=== PATIENT | male | born 1975 | race Caucasian/White ===

== ENCOUNTER 2018-02-26 04:52 | Observation (INO) | payer BC ==
[2018-02-26] MEDS ORDERED: ASPIRIN 81 MG PO STA (04:57)
[2018-02-26] MEDS ORDERED: NITROGLYCERIN SL TABS 0.4 MG TAB SUBLINGUAL STA (04:57)
--- NOTE | 2018-02-26 05:02 | ED ---
Chest Pain HPI - General Chief Complaint: Chest Pain Stated Complaint: Chest pain Time Seen by Provider: 02/26/18 04:54 Source: patient, RN notes reviewed Mode of arrival: wheelchair Limitations: no limitations - History of Present Illness Initial Comments: This is a 42-year-old male with a benign past medical history other than smoking 1 pack cigarettes per day who states he had the onset about 10 PM last night of some left arm discomfort he states he later developed left chest tightness 3/10 severity also some slight left facial numbness later on no fevers chills nausea vomiting sweats or other symptoms he was concerned so he came in for evaluation. No known prior history of heart or lung disease for himself or family members at this time. No other modifying factors at this time. Pain does not get worse or better with movements or positional changes no fevers chills nausea vomiting sweats cough or phlegm production. MD Complaint: chest pain - Related Data Allergies Allergy/AdvReac Type Severity Reaction Status Date / Time No Known Allergies Allergy Verified 02/26/18 04:57 Review of Systems ROS Statement: Those systems with pertinent positive or pertinent negative responses have been documented in the HPI. ROS Other: All systems not noted in ROS Statement are negative. EKG Findings - EKG Results: EKG: interpreted by ANTONETTE, sinus rhythm (Sinus rhythm rate of 86. 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 nonspecific inferior changes) Past Medical History Past Medical History: No Reported History History of Any Multi-Drug Resistant Organisms: None Reported Past Surgical History: No Surgical Hx Reported Past Psychological History: No Psychological Hx Reported Smoking Status: Current every day smoker Past Alcohol Use History: None Reported Past Drug Use History: None Reported General Exam - General Exam Comments Initial Comments: This is a well-developed well-nourished awake alert oriented 3 male Limitations: no limitations General appearance: alert, in no apparent distress Head exam: Present: atraumatic, normocephalic, normal inspection Eye exam: Present: normal appearance, PERRL, EOMI. Absent: scleral icterus, conjunctival injection, periorbital swelling ENT exam: Present: normal exam, mucous membranes moist Neck exam: Present: normal inspection. Absent: tenderness, meningismus, lymphadenopathy Respiratory exam: Present: normal lung sounds bilaterally. Absent: respiratory distress, wheezes, rales, rhonchi, stridor Cardiovascular Exam: Present: regular rate, normal rhythm, normal heart sounds. Absent: systolic murmur, diastolic murmur, rubs, gallop, clicks GI/Abdominal exam: Present: soft, normal bowel sounds. Absent: distended, tenderness, guarding, rebound, rigid Extremities exam: Present: normal inspection, full ROM, normal capillary refill. Absent: tenderness, pedal edema, joint swelling, calf tenderness Back exam: Present: normal inspection Neurological exam: Present: alert, oriented X3, CN II-XII intact Psychiatric exam: Present: normal affect, normal mood Skin exam: Present: warm, dry, intact, normal color. Absent: rash Course Vital Signs 02/26/18 02/26/18 02/26/18 04:54 05:09 05:56 Pulse Rate 94 78 75 Respiratory 16 18 18 Rate Blood Pressure 162/99 152/81 126/82 O2 Sat by Pulse 96 98 98 Oximetry - Reevaluation(s) Reevaluation #1: 02/26/18 06:20 Patient's pain is resolved after the aspirin and nitro was given. Chest Pain MDM - MDM I did review the imaging and report no acute findings. Patient does have resolution of his pain after aspirin and nitroglycerin. He does have EKG changes. The patient will be admitted to the hospitalist service he does see Dr. Coppola normally. The case was discussed with Mara Manager [employer] who is covering for Dr. Baldwin Critical Care Time Critical Care Time: Yes Critical Care Time: 31 minutes of critical care time which includes initial presentation with history physical labs x-rays reevaluation the patient several occasions discuss with the patient regarding findings discussed with the main service admission orders and documentation of the above Disposition Clinical Impression: Unstable angina pectoris, Chest pain Disposition: ADMITTED IP TO THIS [facility] Condition: Stable Referrals: None,Stated [Primary Care Provider] - 1-2 days
[2018-02-26 05:12] LABS: Basophils # (A) 0.1 k/uL (0-0.2); Basophils % (A) 1 %; Eosinophils # (A) 0.3 k/uL (0-0.7); Eosinophils % (A) 2 %; HGB 17.2 gm/dL (13.0-17.5); Lymphocytes # (A) 2.4 k/uL (1.0-4.8); Lymphocytes % (A) 19 %; MCH 29.1 pg (25.0-35.0); MCHC 33.8 g/dL (31.0-37.0); MCV 86.3 fL (80.0-100.0); Mean Platelet Volume 8.4; Monocytes # (A) 0.8 k/uL (0-1.0); Monocytes % (A) 6 %; Neutrophils # (A) 8.8 k/uL (1.3-7.7); Neutrophils % (A) 70 %; Platelet Count 216 k/uL (150-450); RBC 5.92 m/uL (4.30-5.90); RDW 13.4 % (11.5-15.5); WBC 12.6 k/uL (3.8-10.6)
--- NOTE | 2018-02-26 05:39 | XR ---
EXAM: XR Chest, 2 Views CLINICAL HISTORY: ITS.REASON XR Reason: Chest Pain TECHNIQUE: Frontal and lateral views of the chest. COMPARISON: None. FINDINGS: Lungs: Unremarkable. The lungs are clear. Pleural space: Unremarkable. No pneumothorax. Heart: Unremarkable. No cardiomegaly. Mediastinum: Unremarkable. Bones/joints: Unremarkable. IMPRESSION: Normal chest x-rays.
[2018-02-26 05:56] LABS: ALT 54 U/L (21-72); AST 33 U/L (17-59); Albumin 3.8 g/dL (3.5-5.0); Alkaline Phosphatase 79 U/L (38-126); Amylase 37 U/L (30-110); Anion Gap 12 mmol/L; Blood Urea Nitrogen 17 mg/dL (9-20); Calcium 9.3 mg/dL (8.4-10.2); Carbon Dioxide 23 mmol/L (22-30); Chloride 106 mmol/L (98-107); Creatine Kinase 94 U/L (55-170); D-Dimer 0.34 mg/L FEU (<0.60); Glucose 101 mg/dL (74-99); INR 1.1 (<1.2); Lipase 120 U/L (23-300); Magnesium 1.9 mg/dL (1.6-2.3); Partial Thromboplastin Time 23.6 sec (22.0-30.0); Potassium 4.3 mmol/L (3.5-5.1); Prothrombin Time 10.3 sec (9.0-12.0); Sodium 141 mmol/L (137-145); Total Bilirubin 0.6 mg/dL (0.2-1.3); Total Protein 6.1 g/dL (6.3-8.2)
[2018-02-26 06:05] LABS: Creatine Kinase MB 0.5 ng/mL (0.0-2.4)
[2018-02-26 06:09] LABS: Troponin I <0.012 ng/mL (0.000-0.034)
[2018-02-26] MEDS ORDERED: NITROGLYCERIN SL TABS 0.4 MG TAB SUBLINGUAL PRN (06:23)
[2018-02-26] MEDS ORDERED: HEPARIN SODIUM,PORCINE 5,000 UNIT/ML 1 ML VIAL IV ONE (06:23)
[2018-02-26] MEDS ORDERED: HEPARIN SODIUM,PORCINE/D5W PMX 25,000 UNIT in DEXTROSE/WATER 1 500ML.BAG IV SCH (06:45)
[2018-02-26] MEDS: SODIUM CHLORIDE 0.9% 1,000 ML IV SCH (06:46)
[2018-02-26 09:53] LABS: Cholesterol 174 mg/dL (<200); HDL Cholesterol 34 mg/dL (40-60); LDL Cholesterol,Calculated 113 mg/dL (0-99); Triglycerides 134 mg/dL (<150)
--- NOTE | 2018-02-26 10:47 | P.CRDCN ---
History of Present Illness Consult date: 02/26/18 History of present illness: Mr. Belle is a pleasant 42-year-old male with no significant past medical history. He states he is a daily smoker. He denies history of coronary artery disease, hypertension, dyslipidemia or diabetes mellitus. We' ve been asked to see him in consultation for chest pain. He states he developed a left shoulder pain last night around 10 pm while hanging out with his friends. The pain radiated down his left arm and into the left precordial region. No specific aggravating or alleviating factors. It is described as dull heavy sensation with no sob, nausea, vomiting, dizziness, diaphoresis. He does recall palpitations at times. He was given sublingual nitroglycerin upon arrival to the hospital in the pain seemed to subside. He is currently resting comfortably in bed in no acute distress with no chest pain however he still feels a dull ache sensation in the left shoulder. The pain is not reproducible. There is no specific aggravating or alleviating factors. EKG reveals sinus mechanism with nonspecific T-wave abnormalities. No acute ST changes. Chest x-ray is negative for an acute cardiopulmonary process. Laboratory data reviewed, WBC 12.6, hemoglobin 17.2, platelets 216, d-dimer 0.34 , sodium 141, potassium 4.3, magnesium 1.9, creatinine 0.8, cardiac enzymes negative 1, proBNP 52. She takes no daily medications. Risk factors - chronic nicotine dependence. Review of Systems At the time of my exam: CONSTITUTIONAL: Denies fever. Denies chills. EYES: Denies blurred vision. Denies vision changes. Denies eye pain. EARS, NOSE, MOUTH & THROAT: Denies headache. Denies sore throat. Denies ear pain. CARDIOVASCULAR: Denies chest pain. Denies shortness of breath. Denies orthopnea. Denies PND. Denies palpitations. RESPIRATORY: Denies cough. GASTROINTESTINAL: Denies abdominal pain. Denies diarrhea. Denies constipation. Denies nausea. Denies vomiting. MUSCULOSKELETAL: Complains of left shoulder ache. INTEGUMENTARY: Denies pruitis. Denies rash. NEUROLOGIC: Denies numbness. Denies tingling. Denies weakness. PSYCHIATRIC: Denies anxiety. Denies depression. ENDOCRINE: Denies fatigue. Denies weight change. Denies polydipsia. Denies polyurina. GENITOURINARY: Denies burning, hematuria or urgency with micturation. HEMATOLOGIC: Denies history of anemia. Denies bleeding. Past Medical History Past Medical History: No Reported History History of Any Multi-Drug Resistant Organisms: None Reported Past Surgical History: No Surgical Hx Reported Past Psychological History: No Psychological Hx Reported Smoking Status: Current every day smoker Past Alcohol Use History: None Reported Past Drug Use History: None Reported - Past Family History Father Family Medical History: No Reported History Mother Family Medical History: No Reported History Medications and Allergies Home Medications Medication Instructions Recorded Confirmed Type No Known Home Medications [No 02/26/18 02/26/18 History Known Home Medications] Allergies Allergy/AdvReac Type Severity Reaction Status Date / Time No Known Allergies Allergy Verified 02/26/18 06:33 Physical Exam Vitals: Vital Signs Temp Pulse Pulse Resp BP BP Pulse Ox 02/26/18 07:59 72 18 02/26/18 07:33 96 02/26/18 07:00 98.2 F 72 18 149/81 94 L 02/26/18 05:56 75 18 126/82 98 02/26/18 05:09 78 18 152/81 98 02/26/18 04:54 94 16 162/99 96 Intake and Output 02/25/18 02/26/18 02/26/18 22:59 06:59 14:59 Other: Voiding Method Toilet Weight 145.15 kg 146.1 kg Blood pressure 149/81 heart rate 72 afebrile maintaining oxygen saturation on room air GENERAL: This is a 42-year-old male in no apparent distress at the time of my examination. Morbidly obese. HEENT: Head is atraumatic, normocephalic. Pupils are equal, round. Sclerae anicteric. Conjunctivae are clear. Mucous membranes of the mouth are moist. Neck is supple. There is no jugular venous distention. No carotid bruit is heard. LUNGS: Clear to auscultation no wheezes, rales or rhonchi. No chest wall tenderness is noted on palpation or with deep breathing. HEART: Regular rate and rhythm without murmurs, rubs or gallops. S1 and S2 heard. ABDOMEN: Soft, nontender. Bowel sounds are heard. No organomegaly noted. EXTREMITIES: No evidence of peripheral edema and no calf tenderness noted. VASCULAR: Radial and dorsalis pedis pulses palpated, no evidence of clubbing. NEUROLOGIC: Patient is awake, alert and oriented x3. Results 02/26/18 05:00 02/26/18 05:31 Cardiac Enzymes 02/26/18 02/26/18 Range/Units 05:31 05:31 AST 33 (17-59) U/L CK-MB (CK-2) 0.5 (0.0-2.4) ng/mL Troponin I <0.012 (0.000-0.034) ng/mL Coagulation 02/26/18 Range/Units 05:31 PT 10.3 (9.0-12.0) sec APTT 23.6 (22.0-30.0) sec CBC 02/26/18 Range/Units 05:00 WBC 12.6 H (3.8-10.6) k/uL RBC 5.92 H (4.30-5.90) m/uL Hgb 17.2 (13.0-17.5) gm/dL Hct 51.0 (39.0-53.0) % Plt Count 216 (150-450) k/uL Comprehensive Metabolic Panel 02/26/18 Range/Units 05:31 Sodium 141 (137-145) mmol/L Potassium 4.3 (3.5-5.1) mmol/L Chloride 106 (98-107) mmol/L Carbon Dioxide 23 (22-30) mmol/L BUN 17 (9-20) mg/dL Creatinine 0.80 (0.66-1.25) mg/dL Glucose 101 H (74-99) mg/dL Calcium 9.3 (8.4-10.2) mg/dL AST 33 (17-59) U/L ALT 54 (21-72) U/L Alkaline Phosphatase 79 (38-126) U/L Total Protein 6.1 L (6.3-8.2) g/dL Albumin 3.8 (3.5-5.0) g/dL Current Medications Generic Name Dose Route Start Last Admin Trade Name Freq PRN Reason Stop Dose Admin Aspirin 325 mg 02/27/18 09:00 Aspirin PO DAILY MATTHEW Heparin Sodium/Dextrose 25,000 500 mls @ 34.83 mls/hr 02/26/18 06:45 06:46 unit/ IV Solution IV 6.88 units/kg/hr .[id number] MATTHEW 20 mls/hr Protocol Administration 12 UNITS/KG/HR Sodium Chloride 1,000 mls @ 20 mls/hr 02/26/18 06:30 02/26/18 06:46 Saline 0.9% IV 20 mls/hr .Q24H MATTHEW Administration Nitroglycerin 1 inch 02/26/18 12:00 Nitro-Bid Oint TOPICAL Q6HR [facility] Nitroglycerin 0.4 mg 02/26/18 06:23 Nitrostat SUBLINGUAL Q5M PRN Chest Pain Intake and Output 02/25/18 02/26/18 02/26/18 22:59 06:59 14:59 Other: Voiding Method Toilet Weight 145.15 kg 146.1 kg Patient Weight 02/27/18 06:59 Weight 146.1 kg 02/26/18 05:00 02/26/18 05:31 Assessment and Plan Assessment: ASSESSMENT 1. Chest pain, atypical. 2. Chronic nicotine dependence 3. Morbid obesity, BMI 42.5 4. Dyslipidemia, LDL 113 PLAN Obtain 2-D echocardiogram and Doppler study to assess cardiac structure and function. Obtain second troponin at 9:45 AM to rule out an acute coronary event. A second troponin is normal we will proceed with a stress echocardiogram to rule out stress induced cardiac ischemia. Recommend lifestyle modifications for weight loss and to lower cholesterol. Regular exercise recommended. Thank you kindly for this consultation. Nurse Practitioner note has been reviewed, I agree with a documented findings and plan of care. Patient was seen and examined.
--- NOTE | 2018-02-26 10:56 | ECHOF ---
Referral Reason:cp MEASUREMENTS -------- HEIGHT: 182.9 cm WEIGHT: 146.1 kg BP: RVIDd: 3.7 cm (< 3.3) IVSd: 1.3 cm (0.6 - 1.1) LVIDd: 4.6 cm (3.9 - 5.3) LVPWd: 1.4 cm (0.6 - 1.1) IVSs: 1.6 cm LVIDs: 4.1 cm LVPWs: 1.7 cm Ao Diam: 3.7 cm (2.0 - 3.7) AV Cusp: 2.3 cm (1.5 - 2.6) LA Diam: 3.6 cm (2.7 - 3.8) MV EXCURSION: 14.056 mm (> 18.000) MV EF SLOPE: 119 mm/s (70 - 150) EPSS: 0.7 cm MV E Kaushal: 0.72 m/s MV DecT: 147 ms MV A Kaushal: 0.72 m/s MV E/A Ratio: 1.00 RAP: 5.00 mmHg RVSP: 11.16 mmHg FINDINGS -------- Sinus rhythm. Morbid Obesity The left ventricular size is normal. There is mild concentric left ventricular hypertrophy. Overa ll left ventricular systolic function is low-normal with, an EF between 50 - 55 %. The right ventricle is normal in size. The left atrial size is normal. The right atrial size is normal. 5.0mg OF Lumason UTLIZED: 2 OR MORE WALL SEGMENTS NOT VISUALIZED. The aortic valve is trileaflet, and appears structurally normal. No aortic stenosis or regurgitation. Mild mitral annular calcification present. Mild mitral regurgitation is present. Mild tricuspid regurgitation present. There is no evidence of pulmonary hypertension. The right v entricular systolic pressure, as measured by Doppler, is 11.16mmHg. The pulmonic valve was not well visualized. There is no pericardial effusion. CONCLUSIONS -------- 1. Morbid Obesity 2. The left ventricular size is normal. 3. There is mild concentric left ventricular hypertrophy. 4. Overall left ventricular systolic function is low-normal with, an EF between 50 - 55 %. 5. 5.0mg OF Lumason UTLIZED: 2 OR MORE WALL SEGMENTS NOT VISUALIZED. 6. The aortic valve is trileaflet, and appears structurally normal. No aortic stenosis or regurgitati on. 7. Mild mitral annular calcification present. 8. Mild mitral regurgitation is present. 9. Mild tricuspid regurgitation present. 10. There is no evidence of pulmonary hypertension. 11. The right ventricular systolic pressure, as measured by Doppler, is 11.16mmHg. 12. The pulmonic valve was not well visualized. 13. There is no pericardial effusion. GENERAL MANAGER IN TRAINING: Shania Clark RDCS
[2018-02-26 11:33] LABS: Creatine Kinase 76 U/L (55-170)
[2018-02-26 11:46] LABS: Creatine Kinase MB 0.5 ng/mL (0.0-2.4); Troponin I <0.012 ng/mL (0.000-0.034)
[2018-02-26] MEDS ORDERED: NITROGLYCERIN OINT 1 INCH/GM PACKET TOPICAL SCH (12:00)
--- NOTE | 2018-02-26 13:43 | P.PN ---
Progress Note - Text Progress Note Date: 02/26/18 Telemetry tracings reveal around 1130 while the patient was sleeping he went into a second degree type 1 wenkenback AV block with approximately 4 second pause between ventricular activity. He was asymptomatic during this time. We recommend continue to monitor him for another 24-hrs on telemetry.
--- NOTE | 2018-02-26 14:00 | ECHOS ---
STRESS ECHOCARDIOGRAM INDICATIONS: Chest pain. MEDICATIONS: None. BASELINE HEART RATE: 73 BASELINE BLOOD PRESSURE: 139/86 MAXIMUM HEART RATE: 148 MAXIMUM BLOOD PRESSURE: 186/75 85% MPHR: 153 100% MPHR: 180 METS: 9.9 MAXIMUM STAGE REACHED: 2 TOTAL EXERCISE TIME: 8:16 CLINICAL INFORMATION: STRESS DATA: Pretesting physical examination showed a heart rate of 73, pressure 139/86 mmHg. Baseline EKG shows sinus mechanism. The patient exercised on the treadmill according to [employer] protocol for a total of 8 minutes and 16 seconds and achieved 9.9 METS with max heart rate was 148, which is about 82% of maximum predicted heart rate. Maximum blood pressure was 186/75 mmHg. Clinically, the EKG did not show any significant ST or T-wave abnormalities concerning for ischemia. ECHOCARDIOGRAM IMAGES: On echocardiogram images from parasternal long axis view, parasternal short axis view, apical 4 chambers and apical 2 chambers were obtained as the baseline images, at the peak of the heart rate, as well as on recovery. The echocardiogram images revealed good wall motion without any evidence of ischemia. CONCLUSION: 1. Excellent exercise tolerance. 2. Normal EKG in response to exercise. 3. Normal echocardiogram in response to exercise. MMODL / IJN: [id number] /
--- NOTE | 2018-02-26 16:30 | HP ---
HISTORY AND PHYSICAL CHIEF COMPLAINT: Chest pain. HISTORY OF PRESENT ILLNESS: This 42-year-old gentleman with a past history of no significant medical issues was admitted with shoulder and chest pain to [facility]. The patient apparently is smoking about one pack of cigarettes per day. Patient initially had left shoulder pain and left arm discomfort and subsequently patient had chest tightness in the upper part. There is no history of fever, sweating or palpitation at this time. The patient came to [facility] and Cardiology performed a stress echo that was normal; however, when the patient was sleeping he had type I Wenckebach phenomenon with a 4- second pause, and the patient is being closely monitored. There is no history of any fever, rigors or chills. No history of headache, loss of consciousness, seizures. PAST MEDICAL HISTORY: No significant cardiorespiratory illness. MEDICATIONS: None. ALLERGIES: NONE. FAMILY HISTORY: No history of heart disease or strokes family. SOCIAL HISTORY: History of smoking. Occasional alcohol intake. REVIEW OF SYSTEMS: ENT: No diminished hearing. No diminished vision. CARDIOVASCULAR SYSTEM: As mentioned earlier. RESPIRATORY SYSTEM: As mentioned earlier. GI: No nausea, vomiting. : No dysuria or retention. NERVOUS SYSTEM: No numbness, weakness. ALLERGY/IMMUNOLOGY: No asthma, hayfever. MUSCULOSKELETAL: As mentioned earlier. HEMATOLOGY/ONCOLOGY: No history of anemia. ENDOCRINE: No history of diabetes, hypothyroidism. CONSTITUTIONAL: As mentioned earlier. DERMATOLOGY: Negative. RHEUMATOLOGY: Negative. PSYCHIATRY: As mentioned earlier. PHYSICAL EXAMINATION: Patient is alert and oriented x3. Pulse is 64, blood pressure 140/78, respiration 18, temperature 97.8, pulse ox 97% on room air. HEENT: Conjunctivae normal. NECK: No jugular venous distention. CARDIOVASCULAR SYSTEM: S1, S2 muffled. RESPIRATORY SYSTEM: Breath sounds diminished at the bases. No rhonchi. No crackles. ABDOMEN: Soft, non-tender. No mass palpable. LEGS: No edema. No swelling. NERVOUS SYSTEM: Higher functions as mentioned earlier. Moves all 4 limbs. No focal motor or sensory deficit. LYMPHATICS: No lymph node palpable in neck, axillae or groin. SKIN: No ulcer, rash, bleeding. LABS: WBC 12.6, hemoglobin 17.2. Total protein is 6.1. LDL is 113. HDL is 34. ASSESSMENT: 1. Chest pain, possibly musculoskeletal; negative stress echo. 2. Four-second pauses with type I Wenckebach phenomenon. 3. Mild hyperlipidemia with LDL of 113. 4. History of nicotine dependence. RECOMMENDATIONS AND DISCUSSION: In this 42-year-old gentleman who presented with multiple medical issues, at this time I recommend to continue current medication, continue with symptomatic treatment. Otherwise at this time I would recommend continued monitoring. The stress test is negative, as mentioned earlier; however, because of the cardiac arrhythmia, Cardiology would like to monitor the patient for 24 hours more. Guarded prognosis. I would also recommend that the patient follow up with primary physician in the outpatient setting. Further recommendations to follow. MMMARYURIL / IJN: [id number] /
[2018-02-26] MEDS: NICOTINE 14MG/24HR PATCH TRANSDERM SCH (21:20)
[2018-02-27] MEDS ORDERED: ASPIRIN 81 MG PO SCH (09:00)
[2018-02-27] MEDS ORDERED: ASPIRIN 325 MG TAB PO SCH (09:00)
[2018-02-27 09:23] VITALS: RESP 18
[2018-02-27] MEDS: SODIUM CHLORIDE 0.9% 1,000 ML IV SCH (09:53)
[2018-02-27] MEDS: NICOTINE 14MG/24HR PATCH TRANSDERM SCH (09:55)
--- NOTE | 2018-02-27 10:14 | P.PN ---
Subjective Progress Note Date: 02/27/18 This is a 42-year-old gentleman with history of obesity was admitted to the hospital with atypical chest pain. Had a stress test yesterday which was negative for ischemia. He was found to have evidence of sinus bradycardia with a Wenckebach phenomenon during sleep hours. It appears that patient has sleep apnea. Since then patient has been stable. Patient is being discharged home. He'll have a sleep study as an outpatient and subsequently an outpatient event monitor. Follow-up with Dr. Song as an outpatient. Objective - Vital Signs Vital signs: Vital Signs Temp 97.7 F 02/27/18 08:00 Pulse 86 02/27/18 08:00 Resp 18 02/27/18 08:00 BP 152/94 02/27/18 08:00 Pulse Ox 96 02/27/18 08:00 Intake & Output 02/26/18 02/27/18 02/27/18 18:59 06:59 18:59 Intake Total 1140 Balance 1140 Weight 146.1 kg Intake: Oral 1140 Other: Voiding Method Toilet Toilet Toilet # Voids 3 - Exam GENERAL EXAM: Patient is alert and oriented and doesn't appear to be in any acute distress HEENT: Normocephalic. Normal reaction of pupils, equal size, normal range of extraocular motion. No erythema or exudates in the throat. NECK: No masses, no nuchal rigidity. CHEST: No chest wall deformity. LUNGS: Equal air entry with no crackles or wheeze. HEART: S1 and S2 normal with no audible mumurs or gallops. Regular rhythm, femorals equal on both sides.. ABDOMEN: No hepatosplenomegaly, normal bowel sounds, no guarding or rigidity. SKIN: No rashes CENTRAL NERVOUS SYSTEM: No focal deficits. EXTREMITIES: No cyanosis, clubbing or edema. - Labs CBC & Chem 7: 02/26/18 05:00 02/26/18 05:31 Assessment and Plan (1) Bradycardia Current Visit: Yes Status: Acute Code(s): R00.1 - BRADYCARDIA, UNSPECIFIED SNOMED Code(s): 62976659 (2) Chest pain Current Visit: Yes Status: Acute Code(s): R07.9 - CHEST PAIN, UNSPECIFIED SNOMED Code(s): 99123360 (3) Sleep apnea Current Visit: Yes Status: Acute Code(s): G47.30 - SLEEP APNEA, UNSPECIFIED SNOMED Code(s): 75595835 Plan: Patient is advised to have sleep study. Subsequently, a cardiac event monitor to be considered. Follow-up with Dr. Song
[2018-02-27 12:14] VITALS: BP 141/94; PULSE 77; TEMP 98.1
--- NOTE | 2018-02-27 23:43 | DS ---
DISCHARGE SUMMARY DATE OF SERVICE: 02/27/2018 FINAL DIAGNOSES: 1. Chest pain possible musculoskeletal negative stress echo. 2. bradycardia with type 1 Wenckebach known while sleeping. 3. Mild hyperlipidemia with LDL 130. 4. History of nicotine dependence. 5. Rule out sleep apnea. DISCHARGE DISPOSITION: The patient is being discharged in stable condition with guarded prognosis. HISTORY OF PRESENT ILLNESS: This 42-year-old gentleman with a past medical history of multiple medical problems admitted with chest pain. Myocardial infarction ruled out. A stress echo was normal, but however the patient for four second pause with Wenckebach one phenomenon due to sleeping. Sleep study has been recommended. Cardiology saw the patient and recommended outpatient followup. On exam, vitals are stable. Cardiovascular system: S1, S2. Abdomen soft. Nervous system. No focal deficits. The LDL was 130 and I recommended repeat testing and treatment if it is still elevated. DISCHARGE ADVICE AND MEDICATIONS: 1. Diet is cardiac diet. 2. Activity limited until followup. 3. Follow up with Dr. Mckeon in 2-3 days. 4. Follow up with cardiology as advised. 5. Follow with Dr. Spencer 1 week post sleep study. 6. Repeat lipids as recommended. MMODL / IJN: [id number] / YELITZA
== END 2018-02-27 12:03 | disposition home or self-care (01) ==
LOC: EC 04:52 → 3OBS 06:22
PROVIDERS: ADMIT Hospitalist; ATTEND Hospitalist
DX: R07.89 Other chest pain (principal); R00.1 Bradycardia, unspecified; I44.1 Atrioventricular block, second degree; E78.5 Hyperlipidemia, unspecified; F17.210 Nicotine dependence, cigarettes, uncomplicated; M25.512 Pain in left shoulder; R00.2 Palpitations; E66.01 Morbid (severe) obesity due to excess calories; Z68.41 Body mass index [BMI] 40.0-44.9, adult; R20.0 Anesthesia of skin; M79.602 Pain in left arm
CPT/HCPCS: 99291 ×2; 96376 ×2; 96365 ×2; 96366; 36415; 94760; 93005; 93306; 93351; 85379; 83880; 80061; 80053; 84443; 82150; 82550; 82553; 83690; 83735; 84484; 85025; 85610; 85730; 71046; G0378 ×2; S4990 ×2; J1644 ×2; Q9950